=== PATIENT | female | born 1975 | race Caucasian/White ===

== ENCOUNTER 2017-07-03 05:58 | Emergency (ER) | payer OTHER ==
[~2017-07-03] VITALS: Ht 170.2 cm; Wt 68.2 kg
[2017-07-03] MEDS ORDERED: IBUP-2070 PO (06:11)
[2017-07-03] MEDS ORDERED: ALBU8HFA IH (06:11)
[2017-07-03] MEDS ORDERED: MECLIZINE HCL 25 MG TABLET PO ONE (07:15)
[2017-07-03 07:19] LABS: INFLUENZA TYPE A NEGATIVE FOR TYPE A (NEGATIVE)
[2017-07-03 07:20] LABS: INFLUENZA TYPE B POSITIVE FOR TYPE B (NEGATIVE)
[2017-07-03 07:39] VITALS: BP 140/90
== END 2017-07-03 08:54 | disposition home or self-care (01) ==
LOC: EMS 06:01
DX: R42 Dizziness and giddiness (principal); R11.2 Nausea with vomiting, unspecified; F12.90 Cannabis use, unspecified, uncomplicated
CPT/HCPCS: 87804; 99284